=== PATIENT | male | born 1965 | race Caucasian/White ===

== ENCOUNTER 2022-05-25 06:57 | Outpatient (CLI) | payer OTHER, SELFPAY ==
--- NOTE | 2022-05-25 07:15 | CRLHL7_ITS ---
For Patients: As a result of the Century Cures Act, medical imaging exams and procedure reports are released immediately into your electronic medical record. You may view this report before your referring provider. If you have questions, please contact your health care provider. INDICATION: CHRONIC HEPATITIS COMPARISON: CT 02/16/2022 TECHNIQUE: Real time conti scale imaging and color Doppler analysis was performed of the right upper quadrant. FINDINGS: The patient`s liver is of normal size and has diffusely coarsened and heterogeneous echogenicity. There is a normal appearance of the hepatic IVC and proximal abdominal aorta. There is no evidence of ascites. The gallbladder is of normal size and there is no evidence of intraluminal stones or sludge. The gallbladder wall measures 3 mm in thickness. The common bile duct is of normal size and measures 5 mm in diameter at the level of the debbi hepatis. The pancreas appears normal. There is no evidence of a stone or hydronephrosis within the right kidney. The right kidney measures 11.3 cm in length. Incidental note is made of a benign-appearing focus of increased echogenicity within the subcutaneous fat the abdominal wall just beneath the skin measuring 15 x 7 x 12 millimeters. IMPRESSION: Chronic hepatitis. No ascites. Multiple regenerating nodules again noted although better appreciated on the CT. No suspicious intrahepatic mass. Benign abdominal wall subcutaneous lipoma. Dictated by Fausto Flores MD @ 05/25/2022 10:04:50 AM (Electronically Signed)
[2022-05-25 08:19] LABS: Albumin* 3.6 g/dL (3.3-5.0)
[2022-05-25 08:22] LABS: Aspartate Amino Transferase* 41 U/L (12-35); Bilirubin Direct* 0.2 mg/dL (0.0-0.5); Bilirubin Total* 0.6 mg/dL (0.1-1.5); Total Protein* 6.7 g/dL (6.0-8.3)
[2022-05-25 08:23] LABS: Alanine Aminotransferase* 51 U/L (4-50); Alkaline Phosphatase* 98 U/L (40-150)
== END 2022-05-25 06:58 | disposition home or self-care (01) ==
LOC: US 07:00
PROVIDERS: PCP Family Medicine; Visit Provider Family Medicine
DX: K73.9 Chronic hepatitis, unspecified (principal); D17.5 Benign lipomatous neoplasm of intra-abdominal organs
CPT/HCPCS: 36415; 76705; 80076

== ENCOUNTER 2022-10-18 07:06 | Outpatient (CLI) | payer OTHER, SELFPAY ==
--- NOTE | 2022-10-18 | CRLHL7_ITS ---
For Patients: As a result of the Century Cures Act, medical imaging exams and procedure reports are released immediately into your electronic medical record. You may view this report before your referring provider. If you have questions, please contact your health care provider. INDICATION: chronic hepatitis B, mid/left abdominal lump follow-up COMPARISON: 05/25/2022 TECHNIQUE: Real time conti scale imaging and color Doppler analysis was performed of the liver and abdominal wall FINDINGS: The liver parenchyma is diffusely heterogeneous with innumerable regenerating nodules, as before. No ascites. The gallbladder is normal. The gallbladder wall measures less than 2 millimeters. The visualized right kidney appears normal. Similar appearance of subcutaneous lipoma measuring 1.8 x 0.8 x 1.4 cm. IMPRESSION: Chronic liver disease without change compared to the prior study. Stable subcutaneous lipoma. Dictated by Fausto Flores MD @ 10/19/2022 12:57:08 PM (Electronically Signed)
== END 2022-10-18 07:07 | disposition home or self-care (01) ==
PROVIDERS: PCP Family Medicine; Visit Provider Internal Medicine Gastroenterology
DX: B18.1 Chronic viral hepatitis B without delta-agent (principal); K76.9 Liver disease, unspecified
CPT/HCPCS: 76705

== ENCOUNTER 2023-05-05 08:36 | Outpatient (CLI) | payer OTHER, SELFPAY | END 2023-05-05 08:37 | disposition home or self-care (01) | PROVIDERS: PCP Family Medicine; Visit Provider Family Medicine | DX: Z00.00 Encounter for general adult medical examination without abnormal findings (principal); Z13.1 Encounter for screening for diabetes mellitus; Z12.5 Encounter for screening for malignant neoplasm of prostate; Z13.29 Encounter for screening for other suspected endocrine disorder | CPT/HCPCS: 80048; 84153; 84443 ==

== ENCOUNTER 2023-05-12 07:04 | Outpatient (CLI) | payer OTHER, MEDICAID, SELFPAY ==
--- NOTE | 2023-05-12 07:15 | CRLHL7_ITS ---
For Patients: As a result of the Century Cures Act, medical imaging exams and procedure reports are released immediately into your electronic medical record. You may view this report before your referring provider. If you have questions, please contact your health care provider. INDICATION: Chronic hepatitis-B TECHNIQUE: Ultrasound abdomen limited. Sonographic images of the right upper quadrant were obtained using conti-scale and color Doppler images. COMPARISON: None FINDINGS: Liver: Normal in size heterogeneous coarse echotexture. Probable 2.2 centimeter hepatic hemangioma left lobe. No intrahepatic biliary dilatation. Gallbladder: No stones or sludge. Normal wall thickness. No pericholecystic fluid. Common bile duct: 4 mm. Pancreas: Normal. Right kidney: 9.6 cm. Normal echotexture and cortex. No masses, stones, or hydronephrosis. Vasculature: Proximal abdominal aorta and IVC are normal. Miscellaneous: 1.7 centimeter probable lipoma left upper abdominal wall. IMPRESSION: Coarse echogenic liver. 2.2 centimeter probable hepatic hemangioma left lobe. 2.2 centimeter probable lipoma left upper abdominal wall. Dictated by Fausto Gordon MD @ 05/12/2023 4:11:35 PM (Electronically Signed)
[2023-05-12 08:37] LABS: Basophils Absolute Auto 0.02 K/uL (0.00-0.30); Basophils Percent Auto 0.4 % (0.0-3.0); Eosinophils Absolute Auto 0.16 K/uL (0.00-0.50); Eosinophils Percent Auto 2.9 % (0.0-7.0); Hemoglobin* 14.6 gm/dL (13.5-17.5); Lymphocytes Absolute Auto 1.94 K/uL (0.90-2.90); Lymphocytes Percent Auto 35.5 % (20-44); Mean Corpuscular HGB Conc 33 gm/dL (32-36); Mean Corpuscular Hemoglobin 32 pg (26-34); Mean Corpuscular Volume 97 fL (80-100); Neutrophils Absolute Auto 3.02 K/uL (1.7-7.0); Neutrophils Percent Auto 55.2 % (42.0-72.0); Platelet Count* 155 K/uL (140-440); RDW Coefficient of Variation % 12.4 % (11.5-15.5); Red Blood Count 4.56 m/uL (4.30-5.90); White Blood Count* 5.47 K/uL (4.50-11.00)
[2023-05-12 08:49] LABS: Hemoglobin A1C* 5.47 % (0-5.6)
[2023-05-12 08:55] LABS: Chloride* 102 mmol/L (96-114); Potassium* 4.7 mmol/L (3.6-5.1); Sodium* 138 mmol/L (135-149)
[2023-05-12 08:57] LABS: Carbon Dioxide* 30 mmol/L (20-32); Estimated Glomerular Filt Rate 89 ml/min
[2023-05-12 08:58] LABS: Alanine Aminotransferase* 45 U/L (4-50); Alkaline Phosphatase* 66 U/L (40-150); Aspartate Amino Transferase* 36 U/L (12-35); Bilirubin Total* 0.8 mg/dL (0.1-1.5); Blood Urea Nitrogen* 19 mg/dL (7-30); Calcium* 9.1 mg/dL (8.4-10.6); Glucose* 96 mg/dL (60-115); Total Protein* 7.4 g/dL (6.0-8.3)
[2023-05-12 09:17] LABS: Albumin* 4.1 g/dL (3.3-5.0)
[2023-05-12 09:57] LABS: Slide Review Reflex No
[2023-05-13 06:37] LABS: Alpha Fetoprotein Tumor Marker 3 ng/mL (0-9)
== END 2023-05-12 07:05 | disposition home or self-care (01) ==
LOC: US 07:04
PROVIDERS: PCP Family Medicine; Visit Provider Internal Medicine Gastroenterology
DX: B18.1 Chronic viral hepatitis B without delta-agent (principal); D17.1 Benign lipomatous neoplasm of skin and subcutaneous tissue of trunk; D17.5 Benign lipomatous neoplasm of intra-abdominal organs
CPT/HCPCS: 36415; 76705; 80048; 80076; 82105; 83036; 85025; 87350; 87517; T1013

== ENCOUNTER 2023-11-29 10:32 | Outpatient (CLI) | payer OTHER, MEDICAID, SELFPAY ==
[2023-11-29 11:32] LABS: Basophils Absolute Auto 0.02 K/uL (0.00-0.30); Basophils Percent Auto 0.3 % (0.0-3.0); Eosinophils Absolute Auto 0.17 K/uL (0.00-0.50); Eosinophils Percent Auto 2.7 % (0.0-7.0); Hematocrit 47.4 % (37.0-53.0); Hemoglobin* 15.8 gm/dL (13.5-17.5); Immature Granulocytes Abs Auto 0.01 K/uL (0.00-0.30); Immature Granulocytes Pct Auto 0.2 %; Lymphocytes Absolute Auto 1.62 K/uL (0.90-2.90); Lymphocytes Percent Auto 25.7 % (20-44); Mean Corpuscular HGB Conc 33 gm/dL (32-36); Mean Corpuscular Hemoglobin 32 pg (26-34); Mean Corpuscular Volume 96 fL (80-100); Monocytes Percent Auto 4.9 % (0.0-11.0); Neutrophils Absolute Auto 4.18 K/uL (1.7-7.0); Neutrophils Percent Auto 66.2 % (42.0-72.0); Platelet Count* 174 K/uL (140-440); RDW Coefficient of Variation % 11.9 % (11.5-15.5); Red Blood Count 4.96 m/uL (4.30-5.90); White Blood Count* 6.31 K/uL (4.50-11.00)
[2023-11-29 11:58] LABS: Albumin* 4.4 g/dL (3.3-5.0)
[2023-11-29 12:00] LABS: Bilirubin Total* 0.8 mg/dL (0.1-1.5)
[2023-11-29 12:01] LABS: Alanine Aminotransferase* 41 U/L (4-50); Alkaline Phosphatase* 67 U/L (40-150); Aspartate Amino Transferase* 32 U/L (12-35); Total Protein* 7.9 g/dL (6.0-8.3)
[2023-11-29 12:54] LABS: Slide Review Reflex No
--- NOTE | 2023-11-29 15:00 | CRLHL7_ITS ---
For Patients: As a result of the Century Cures Act, medical imaging exams and procedure reports are released immediately into your electronic medical record. You may view this report before your referring provider. If you have questions, please contact your health care provider. INDICATION: Chronic hepatitis B. TECHNIQUE: Conventional two-dimensional grayscale ultrasound of the right upper quadrant. COMPARISON: Right upper quadrant ultrasound of 05/12/2023 FINDINGS: Coarsened hepatic parenchymal echogenicity is again demonstrated. The liver edge appears somewhat nodular, suggesting cirrhosis. An echogenic 2.5 x 2.4 x 2.4 cm posterior left back lobe mass is demonstrated. This was previously measured at 2.2 x 1.9 x 1.6 cm. The gallbladder is normal, with no evidence of stones. No gallbladder wall thickening or pericholecystic fluid is demonstrated. The patient is reportedly not tender over the gallbladder. No biliary ductal dilation is evident. The common bile duct measures 3 mm. The pancreas is within normal limits. The right kidney is unremarkable. The visualized portion of the abdominal aorta and inferior vena cava are negative. IMPRESSION: 1. Suspected cirrhotic liver. 2. 2.5 x 2.4 x 2.4 cm echogenic left hepatic lobe mass, apparently increased from 2.2 x 1.9 x 1.6 cm. Question hepatocellular carcinoma. Further evaluation with MRI recommended. 3. Normal gallbladder and bile ducts. Dictated by Jefry Bass MD @ 11/29/2023 12:27:43 PM (Electronically Signed)
[2023-11-30 12:40] LABS: Alpha Fetoprotein Tumor Marker 3 ng/mL (0-9)
== END 2023-11-29 10:33 | disposition home or self-care (01) ==
PROVIDERS: PCP Family Medicine; Visit Provider Internal Medicine Gastroenterology
DX: B18.1 Chronic viral hepatitis B without delta-agent (principal); R16.0 Hepatomegaly, not elsewhere classified
CPT/HCPCS: 36415; 76705; 80076; 82105; 85025; 87517

== ENCOUNTER 2023-12-01 14:18 | Outpatient (CLI) | payer OTHER, MEDICAID, SELFPAY ==
[2023-12-03 12:34] LABS: Alpha Fetoprotein Tumor Marker 3 ng/mL (0-9)
== END 2023-12-01 14:19 | disposition home or self-care (01) ==
PROVIDERS: PCP Family Medicine; Visit Provider Internal Medicine Gastroenterology
DX: K76.9 Liver disease, unspecified (principal)
CPT/HCPCS: 36415; 82105

== ENCOUNTER 2023-12-12 07:57 | Outpatient (CLI) | payer OTHER, MEDICAID, SELFPAY ==
--- NOTE | 2023-12-12 08:15 | CRLHL7_ITS ---
For Patients: As a result of the Century Cures Act, medical imaging exams and procedure reports are released immediately into your electronic medical record. You may view this report before your referring provider. If you have questions, please contact your health care provider. INDICATION: Chronic hepatitis B; abnormal liver ultrasound; further assessment. COMPARISON: CT abdomen and pelvis February 16, 2022 and ultrasound examination of the right upper quadrant of the abdomen November 19, 2023. TECHNIQUE: Precontrast T1 and T2 weighted imaging; T2 haste imaging; diffusion weighted imaging; in and out of phase imaging; postcontrast imaging including subtraction; 20 cc of Dotarem contrast was injected. FINDINGS: A 3 x 2.8 cm lesion identified in segment 2 of the liver with restriction of diffusion and enhancement postcontrast administration with washout on the delayed imaging indicating a LIRADS 5 lesion. Cirrhotic liver morphology without any evidence of splenomegaly or portal hypertension. Unfortunately ,a true arterial phase imaging is missing. No other focal hepatic or splenic pathology. No pancreatic pathology. Gallbladder is unremarkable. No adrenal pathology. Kidneys are unremarkable. No retroperitoneal lymphadenopathy. IMPRESSION: A 3 x 2.8 cm LIRADS 5 lesion segment 2 of the liver; suggest hepatobiliary consultation for further assessment. Dictated by Jeronimo Chavez MD @ 12/14/2023 2:03:31 PM (Electronically Signed)
== END 2023-12-12 07:58 | disposition home or self-care (01) ==
PROVIDERS: PCP Family Medicine; Visit Provider Internal Medicine Gastroenterology
DX: K76.9 Liver disease, unspecified (principal); B18.1 Chronic viral hepatitis B without delta-agent
CPT/HCPCS: 74183; A9575

== ENCOUNTER 2024-01-16 12:48 | Outpatient (CLI) | payer MEDICAID, SELFPAY ==
[2024-01-16] MEDS: PERFLUTREN LIPID MICROSPHERES 2 ML VIAL IV (14:09)
--- NOTE | 2024-01-16 14:13 | W.PM.STED ---
Stress Test Note Date Date Seen: 01/16/24 Date of test: 01/16/24 Providers Primary care provider: Jhonny Boyd Stress test physician: Milagros Lopez Stress Test Note Stress test ordered: Stress Echo Indication for test: Dyspnea Stress test medicine: Definity Results discussion: Resting EKG: Sinus rhythm, 73 beats per minute. Resting blood pressure: 116/70 Stress test: Patient was exercised on the treadmill following standard Heri protocol. Patient exercised for duration of 9 minutes 32 seconds, equivalent of 11.1 Mets. He achieved a maximum heart rate of 166 beats per minute which was 119% of a calculated target of 139. He had a maximal blood pressure of 188/186 giving him a rate pressure product of 28,764. Test was terminated due to patient being above maximal heart rate, needing to adequately time the definity and giving adequate time for diffusion of the contrast. Patient had no significant symptoms during the stress test, really states he did not have any significant shortness of breath. There was no definitive EKG evidence of ischemia. Patient did exhibit occasional PVCs throughout this stress test. Echo images are pending to couple this for a full formal diagnostic. Impression: Subjectively negative, objectively negative EKG portion of this stress test for ischemia, PVCs noted. Follow up suggested: Patient will await the echo images to be read by Cardiology, will expect a reports or follow-up call from his primary. He was discharged from here in stable condition.
[2024-01-16 14:21] VITALS: BP 130/88; PULSE 97; RESP 18
== END 2024-01-16 14:20 | disposition home or self-care (01) ==
LOC: STRESS 12:49
PROVIDERS: PCP Family Medicine; Visit Provider Family Medicine
DX: R06.09 Other forms of dyspnea (principal)
CPT/HCPCS: 93016; 93325; 93351; T1013; Q9957

== ENCOUNTER 2024-01-29 10:27 | Outpatient (CLI) | payer MEDICAID, SELFPAY | END 2024-01-29 10:28 | disposition home or self-care (01) | PROVIDERS: PCP Family Medicine; Visit Provider Internal Medicine | DX: R16.0 Hepatomegaly, not elsewhere classified (principal) | CPT/HCPCS: 80053; 84100; 85610 ==

== ENCOUNTER 2024-02-26 13:42 | Outpatient (REF) | payer MEDICAID, SELFPAY ==
[2024-02-26 14:51] LABS: Chloride* 104 mmol/L (96-114)
[2024-02-26 14:52] LABS: Potassium* 4.5 mmol/L (3.6-5.1); Sodium* 142 mmol/L (135-149)
[2024-02-26 14:54] LABS: Creatinine* 0.9 mg/dL (0.5-1.5); Estimated Glomerular Filt Rate 100 ml/min
[2024-02-26 14:55] LABS: Anion Gap 7 mEq/L (7-15); Blood Urea Nitrogen* 17 mg/dL (7-30); Carbon Dioxide* 31 mmol/L (20-32); Glucose* 92 mg/dL (60-115); Phosphorus* 3.4 mg/dL (2.5-4.5)
== END 2024-02-26 13:43 | disposition home or self-care (01) ==
LOC: NPINS 13:42
PROVIDERS: PCP Family Medicine; Visit Provider Physician Assistant Surgical
DX: R78.89 Finding of other specified substances, not normally found in blood (principal)
CPT/HCPCS: 80048; 84100

== ENCOUNTER 2024-06-12 07:46 | Outpatient (CLI) | payer BC, SELFPAY ==
--- NOTE | 2024-06-12 08:00 | CRLHL7_ITS ---
For Patients: As a result of the Century Cures Act, medical imaging exams and procedure reports are released immediately into your electronic medical record. You may view this report before your referring provider. If you have questions, please contact your health care provider. INDICATION: Chronic hepatitis B; hepatocellular carcinoma; status post resection segments 2 and 3 of the liver; follow-up. COMPARISON: CT abdomen February 16, 2022; ultrasound examination of the abdomen November 29, 2023; MR of the abdomen December 12, 2023. TECHNIQUE: CT abdomen without intravenous contrast; CT abdomen with intravenous contrast during arterial phase imaging, venous phase imaging and delayed imaging; coronal and sagittal reformats. FINDINGS: No abnormal intrapulmonary nodule densities through the lung bases. No evidence of pleural effusion. Normal size cardiac silhouette. No pericardial effusion. Status post resection segments 2 and 3 of the liver. A tiny subcentimeter cyst at the junction of segments 7 and 8 of the liver without any interval change. No focal hepatic or splenic pathology. No enhancing mass lesions identified within the liver. No evidence of reoccurrence of hepatocellular carcinoma. No pancreatic pathology. Gallbladder is unremarkable. No adrenal pathology. A 5 mm nonobstructing calculus upper pole calyx left kidney. No retroperitoneal lymphadenopathy. No evidence of abdominal ascites. Impression : 1. Status post resection segments 2 and 3 of the liver. 2. No evidence of reoccurrence of hepatocellular carcinoma. 3. Sub cm cyst at the junction of segments 7 and 8 of the liver. 4. 5 mm nonobstructing calculus upper pole calyx left kidney. Please note that all CT scans at this facility use dose modulation, iterative reconstruction, and/or weight-based dosing when appropriate to reduce radiation dose to as low as reasonably achievable. Dictated by Jeronimo Chavez MD @ 06/14/2024 11:49:41 AM (Electronically Signed)
[2024-06-12 09:41] LABS: Basophils Absolute Auto 0.02 K/uL (0.00-0.30); Basophils Percent Auto 0.3 % (0.0-3.0); Eosinophils Percent Auto 1.4 % (0.0-7.0); Hematocrit 45.7 % (37.0-53.0); Hemoglobin* 15.2 gm/dL (13.5-17.5); Immature Granulocytes Abs Auto 0.01 K/uL (0.00-0.30); Immature Granulocytes Pct Auto 0.1 %; Lymphocytes Absolute Auto 2.26 K/uL (0.90-2.90); Lymphocytes Percent Auto 32.4 % (20-44); Mean Corpuscular HGB Conc 33 gm/dL (32-36); Mean Corpuscular Hemoglobin 32 pg (26-34); Mean Corpuscular Volume 95 fL (80-100); Monocytes Percent Auto 5.9 % (0.0-11.0); Neutrophils Absolute Auto 4.18 K/uL (1.7-7.0); Neutrophils Percent Auto 59.9 % (42.0-72.0); Platelet Count* 175 K/uL (140-440); RDW Coefficient of Variation % 12.6 % (11.5-15.5); Red Blood Count 4.82 m/uL (4.30-5.90); White Blood Count* 6.98 K/uL (4.50-11.00)
[2024-06-12 09:45] LABS: Slide Review Reflex No
[2024-06-12 09:52] LABS: Albumin* 4.6 g/dL (3.3-5.0)
[2024-06-12 09:55] LABS: Alkaline Phosphatase* 70 U/L (40-150); Aspartate Amino Transferase* 50 U/L (12-35); Bilirubin Direct* 0.2 mg/dL (0.0-0.5); Bilirubin Total* 0.8 mg/dL (0.1-1.5); Creatinine* 0.9 mg/dL (0.5-1.5); Estimated Glomerular Filt Rate 100 ml/min; Total Protein* 8.2 g/dL (6.0-8.3)
[2024-06-12 09:56] LABS: Alanine Aminotransferase* 33 U/L (4-50)
[2024-06-13 14:56] LABS: Alpha Fetoprotein Tumor Marker 2 ng/mL (0-9)
== END 2024-06-12 07:47 | disposition home or self-care (01) ==
LOC: CT 07:46
PROVIDERS: PCP Family Medicine; Visit Provider Internal Medicine Gastroenterology
DX: B18.1 Chronic viral hepatitis B without delta-agent (principal); C22.0 Liver cell carcinoma; K76.89 Other specified diseases of liver; N20.0 Calculus of kidney
CPT/HCPCS: 36415; 74170; 80076; 82105; 82565; 85025; 87517; T1013; Q9967

== ENCOUNTER 2024-06-18 08:56 | Outpatient (CLI) | payer BC, SELFPAY | END 2024-06-18 08:57 | disposition home or self-care (01) | PROVIDERS: PCP Family Medicine; Visit Provider Family Medicine | DX: Z01.818 Encounter for other preprocedural examination (principal); I25.10 Atherosclerotic heart disease of native coronary artery without angina pectoris; C22.0 Liver cell carcinoma | CPT/HCPCS: 80048; 80061 ==

== ENCOUNTER 2024-06-28 10:58 | Day surgery (SDC) | payer BC, SELFPAY ==
[2024-06-28] VITALS (13 sets, daily range): BP systolic 113–136; BP diastolic 82–110; PULSE 58–67; RESP 15–19; TEMP 36.1–36.6; O2SAT 94–99; BMI 29.3
[2024-06-28] MEDS: OXYMETAZOLINE 0.05% NASAL SPRAY 2 SPRAY NOSTRIL-B (11:25)
[2024-06-28] MEDS: LACTATED RINGERS 1000 ML 1,000 ML 100 ML IV (11:30)
[2024-06-28] MEDS: SODIUM CHLORIDE 0.9 % (FLUSH) 10 ML SYRINGE IVF (11:30)
[2024-06-28] MEDS: BUPIVACAINE 0.5 %/EPI 1:200K 30 ML INJECTION (12:39)
[2024-06-28] MEDS: COCAINE HCL 4 % 4 ML SOLUTION NOSTRIL-B (12:39)
[2024-06-28] MEDS: AYR SALINE NASAL GEL 1 APPLIC NOSTRIL-B (12:39)
[2024-06-28] MEDS: MUPIROCIN 1 GM PACKET 1 APPLIC TOPICAL (12:39)
--- NOTE | 2024-06-28 13:00 | P.ENTPROC_ITS ---
Procedure Note Date of procedure: 06/28/24 Procedure: Preop diagnosis nasal obstruction, deviated septum, bilateral inferior turbinate hypertrophy Postoperative diagnosis same Procedure nasal septoplasty, submucous partial resection inferior turbinates bilateral Under general trach anesthesia patient was prepped draped usual fashion and the nose decongested and injected. A right hemitransfixion incision was made left anterior posterior tunnels were created a vertical incision was made through the cartilage and a right posterior tunnel created. A right anterior tunnel was also created which medialized the anterior septum. The posterior deflected portions of septal bone were removed by cutting above and below the turbinate scissors and removing with the [place] forceps. A large piece was trimmed and returned to intraseptal space. The hemitransfixion was closed with 2 4-0 chromic sutures and silastic stents secured with 3-0 nylon. A stab incision was made in the anterior of the right inferior turbinate a tunnel created with a Torin dissector. The turbinate was outfractured and a conservative anterior submucous resection performed with Willy forceps. The Coblation was used to cauterize and then to cauterize intramurally along the inferior 10%. This was repeated on the left side in identical fashion. Merocel packing was placed above the stents on each side. The patient procedure well was taken recovery in satisfactory condition. Blood loss was less than 10 mL. Surgeon: Loc Kincaid MD
--- NOTE | 2024-06-28 13:18 | W.ANESCHARGE ---
Anesthesia Charges Start Date/Time Anesthesia Start Date: 06/28/24 Anesthesia Start Time: 12:23 Stop Date/Time Anesthesia Stop Date: 06/28/24 Anesthesia Stop Time: 13:17
--- NOTE | 2024-06-28 13:21 | W.ANESCHARGE ---
Anesthesia Charges Start Date/Time Anesthesia Start Date: 06/28/24 Anesthesia Start Time: 12:23 Stop Date/Time Anesthesia Stop Date: 06/28/24 Anesthesia Stop Time: 13:17
== END 2024-06-28 15:08 | disposition home or self-care (01) ==
LOC: OR 11:02
PROVIDERS: PCP Family Medicine; Visit Provider Otolaryngology
PROC: (CPT 30520; principal; 2024-06-28 12:30)
DX: J34.2 Deviated nasal septum (principal); J34.3 Hypertrophy of nasal turbinates; J34.89 Other specified disorders of nose and nasal sinuses
CPT/HCPCS: 30520; 30140; 00160; T1013; A9270; J1100; J2250; J2405; J2704; J2710; J3010; J3490; J7120

== ENCOUNTER 2024-09-16 07:45 | Outpatient (CLI) | payer BC, SELFPAY ==
--- NOTE | 2024-09-16 08:00 | CRLHL7_ITS ---
For Patients: As a result of the Century Cures Act, medical imaging exams and procedure reports are released immediately into your electronic medical record. You may view this report before your referring provider. If you have questions, please contact your health care provider. INDICATION: Hepatocellular carcinoma status post left lateral segmentectomy (segments 2/3) performed 01/23/2024. Follow-up. COMPARISON: MRI 12/12/2023 TECHNIQUE: CT of the abdomen prior to and following intravenous administration of 89 cc of Isovue 370 intravenous contrast. Postcontrast imaging performed in the early arterial, portal venous and delayed phases. Please note that all CT scans at this facility use dose modulation, iterative reconstruction, and/or weight-based dosing when appropriate to reduce radiation dose to as low as reasonably achievable. FINDINGS: ABDOMEN Liver: Left lateral segmentectomy (segments 2/3). Stable 5 mm segment 8 cyst (9; 16). No intrahepatic biliary ductal dilatation. Patent portal veins. Patent hepatic veins. Gallbladder: Normal size. No pericholecystic inflammatory changes. Extrahepatic Biliary Tree: Normal common duct caliber. Pancreas: No focal lesion. Normal main duct caliber. No peripancreatic inflammatory changes. Spleen: No suspicious focal lesion. Adrenal Glands: Symmetrical adrenal glands. No focal lesion of significance. Kidneys: Normal bilateral renal attenuation. No suspicious focal lesion. Nonobstructing 6 mm left nephrolith (4; 41). No dilatation of the intrarenal collecting systems. No ureteral stone. Nondilated ureters. Gastrointestinal tract: Normal caliber, attenuation and wall thickness of the gastrointestinal tract. No inflammatory changes. Normal small bowel mesentery. Normal appendix. Vascular: Abdominal aorta and its major proximal branches including the celiac, superior mesenteric, inferior mesenteric, renal, and bilateral common iliac arteries are patent. Inferior vena cava, portal and superior mesenteric veins are patent. Peritoneal Cavity/Retroperitoneum: No ascites. No adenopathy. SKELETON AND BODY WALL No acute or significant incidental findings. LOWER THORAX Partially included lower thoracic wall, lungs, pleural spaces and mediastinum are otherwise without significant incidental findings. IMPRESSION: No significant interval findings. Left lateral hepatic segmentectomy. Incidental stable benign segment 8 subcentimeter hepatic cyst. Nonobstructing subcentimeter left nephrolith. Please note that all CT scans at this facility use dose modulation, iterative reconstruction, and/or weight-based dosing when appropriate to reduce radiation dose to as low as reasonably achievable. Dictated by Robert Fine MD @ 09/16/2024 12:13:02 PM (Electronically Signed)
[2024-09-16 09:05] LABS: Basophils Absolute Auto 0.02 K/uL (0.00-0.30); Basophils Percent Auto 0.3 % (0.0-3.0); Eosinophils Absolute Auto 0.14 K/uL (0.00-0.50); Eosinophils Percent Auto 2.1 % (0.0-7.0); Hematocrit 45.9 % (37.0-53.0); Hemoglobin* 15.1 gm/dL (13.5-17.5); Immature Granulocytes Abs Auto 0.01 K/uL (0.00-0.30); Immature Granulocytes Pct Auto 0.2 %; Lymphocytes Percent Auto 30.3 % (20-44); Mean Corpuscular HGB Conc 33 gm/dL (32-36); Mean Corpuscular Hemoglobin 32 pg (26-34); Mean Corpuscular Volume 96 fL (80-100); Monocytes Percent Auto 5.7 % (0.0-11.0); Neutrophils Absolute Auto 4.06 K/uL (1.7-7.0); Neutrophils Percent Auto 61.4 % (42.0-72.0); Platelet Count* 159 K/uL (140-440); RDW Coefficient of Variation % 12.2 % (11.5-15.5); Red Blood Count 4.77 m/uL (4.30-5.90); White Blood Count* 6.61 K/uL (4.50-11.00)
[2024-09-16 09:06] LABS: Slide Review Reflex No
[2024-09-16 09:20] LABS: Albumin* 4.3 g/dL (3.3-5.0)
[2024-09-16 09:23] LABS: Aspartate Amino Transferase* 33 U/L (12-35); Bilirubin Direct* 0.1 mg/dL (0.0-0.5); Bilirubin Total* 0.4 mg/dL (0.1-1.5); Creatinine* 0.8 mg/dL (0.5-1.5); Estimated Glomerular Filt Rate 103 ml/min; Total Protein* 7.5 g/dL (6.0-8.3)
[2024-09-16 09:24] LABS: Alanine Aminotransferase* 46 U/L (4-50); Alkaline Phosphatase* 68 U/L (40-150)
[2024-09-17 16:59] LABS: Alpha Fetoprotein Tumor Marker 2 ng/mL (0-9)
== END 2024-09-16 07:46 | disposition home or self-care (01) ==
LOC: CT 07:53
PROVIDERS: PCP Family Medicine; Visit Provider Internal Medicine Gastroenterology
DX: C22.0 Liver cell carcinoma (principal)
CPT/HCPCS: 36415; 74170; 80076; 82105; 82565; 85025; 87517; T1013; Q9967

== ENCOUNTER 2024-10-28 21:52 | Emergency (ER) | payer BC, SELFPAY ==
[2024-10-28 22:27] VITALS: BP 111/69; PULSE 82; RESP 18; TEMP 36.4
--- NOTE | 2024-10-28 22:47 | ED_ITS ---
HPI - General Adult General Stated complaint: R wrist work injury Time Seen by Provider: 10/28/24 22:45 History of Present Illness HPI narrative: LW BS Related Data Home Medications ?Medication ?Instructions ?Recorded ?Confirmed entecavir 0.5 mg tablet 0.5 mg PO QDAY 01/29/24 07/02/24 Gut Support PO 06/18/24 07/02/24 probiotic PO 06/18/24 07/02/24 Previous Rx's ?Medication ?Instructions ?Recorded rosuvastatin 5 mg tablet 5 mg PO QDAY #30 tabs 06/18/24 cephalexin 250 mg capsule 250 mg PO TID #18 caps 06/28/24 oxycodone 5 mg capsule 5 mg PO Q4-6H PRN pain #30 caps 06/28/24 Allergies Allergy/AdvReac Type Severity Reaction Status Date / Time turmeric Allergy Unknown Itching Verified 09/16/24 09:06 [facility] PFS Surgical History History of surgery of liver ?Z98.890 - Other specified postprocedural states (ICD-10) Status post subtotal parathyroidectomy ?E89.2 - Postprocedural hypoparathyroidism (ICD-10) Social History What is your current living situation?: I presently have a place to live Problems where you live: no known problems In the past 12 months, utilities in danger of being shut off: no In the past 12 mos, have been you worried that your food would run out before you had money to buy more?: never true In the past 12 mos, the food you bought just didn't last and you didn't have money to buy more?: never true Smoking Status: Never smoker Do you use any of these nicotine containing products: None Second hand tobacco smoke exposure: No How often do you have a drink containing alcohol: never How often do you have six or more drinks on one occasion: Never AUDIT-C Alcohol total score: 0 Non-prescribed substance use: denies use Caffeine: No How often does anyone, including family, friends and others, physically hurt you : How often does anyone, including family, friends and others, insult or talk down to you: How often does anyone, including family, friends and others, threaten you with harm: How often does anyone, including family, friends and others, scream or curse at you: Exam Const: Vital Signs, click to edit/add: Vital Signs - 24 hr 10/28/24 22:27 Temperature 97.6 F Pulse Rate [Pulse Oximeter] 82 Respiratory Rate 18 Blood Pressure [Ri ght Upper Arm] 111/69 Oxygen Delivery Me thod Room Air Course Vital Signs Vital signs: Initial Vital Signs Temperature 97.6 F 10/28/24 22:27 Temperature Source Temporal Artery Scan 10/28/24 22:27 Pulse Rate 82 10/28/24 22:27 Respiratory Rate 18 10/28/24 22:27 Blood Pressure 111/69 10/28/24 22:27 Blood Pressure Mean 83 10/28/24 22:27 Oxygen Delivery Method Room Air 10/28/24 22:27 Vital Signs Temperature 97.6 F 10/28/24 22:27 Pulse Rate 82 10/28/24 22:27 Respiratory Rate 18 10/28/24 22:27 Blood Pressure 111/69 10/28/24 22:27 Oxygen Delivery Method Room Air 10/28/24 22:27 Temperature 97.6 F 10/28/24 22:27 Pulse Rate 82 10/28/24 22:27 Respiratory Rate 18 10/28/24 22:27 Blood Pressure 111/69 10/28/24 22:27 Oxygen Delivery Method Room Air 10/28/24 22:27 Discharge Plan Discharge Patient Disposition: Left Without Being Seen
--- NOTE | 2024-10-28 23:07 | PC.NURSE ---
pt provided ice pack and directed back to triage related to increase ED pts. All other cares explained. Pt with SO and ambulate back to triage with stable gait.
== END 2024-10-29 00:16 | disposition left against medical advice (07) ==
LOC: ED 10-29 00:17
PROVIDERS: Emergency Provider Emergency Medicine; PCP Family Medicine
DX: Z53.21 Procedure and treatment not carried out due to patient leaving prior to being seen by health care provider (principal)
CPT/HCPCS: 99281

== ENCOUNTER 2024-12-11 10:12 | Outpatient (CLI) | payer BC, SELFPAY ==
[2024-12-11 10:44] LABS: Basophils Absolute Auto 0.02 K/uL (0.00-0.30); Basophils Percent Auto 0.3 % (0.0-3.0); Eosinophils Absolute Auto 0.09 K/uL (0.00-0.50); Eosinophils Percent Auto 1.3 % (0.0-7.0); Hematocrit 44.9 % (37.0-53.0); Hemoglobin* 14.9 gm/dL (13.5-17.5); Lymphocytes Absolute Auto 2.07 K/uL (0.90-2.90); Mean Corpuscular HGB Conc 33 gm/dL (32-36); Mean Corpuscular Hemoglobin 32 pg (26-34); Mean Corpuscular Volume 96 fL (80-100); Monocytes Percent Auto 5.7 % (0.0-11.0); Neutrophils Absolute Auto 4.33 K/uL (1.7-7.0); Neutrophils Percent Auto 62.7 % (42.0-72.0); Platelet Count* 163 K/uL (140-440); RDW Coefficient of Variation % 12.3 % (11.5-15.5); Red Blood Count 4.69 m/uL (4.30-5.90)
[2024-12-11 10:49] LABS: Slide Review Reflex No
[2024-12-11 10:59] LABS: Albumin* 4.3 g/dL (3.3-5.0)
[2024-12-11 11:02] LABS: Alkaline Phosphatase* 65 U/L (40-150); Aspartate Amino Transferase* 34 U/L (12-35); Bilirubin Direct* 0.1 mg/dL (0.0-0.5); Bilirubin Total* 0.8 mg/dL (0.1-1.5); Estimated Glomerular Filt Rate 88 ml/min; Total Protein* 7.6 g/dL (6.0-8.3)
[2024-12-11 11:03] LABS: Alanine Aminotransferase* 44 U/L (4-50)
[2024-12-12 17:24] LABS: Alpha Fetoprotein Tumor Marker 2 ng/mL (0-9)
== END 2024-12-11 10:13 | disposition home or self-care (01) ==
PROVIDERS: PCP Family Medicine; Visit Provider Internal Medicine Gastroenterology
DX: C22.0 Liver cell carcinoma (principal); B18.1 Chronic viral hepatitis B without delta-agent
CPT/HCPCS: 36415; 80076; 82105; 82565; 85025; 87517

== ENCOUNTER 2024-12-11 10:19 | Outpatient (CLI) | payer BC, SELFPAY | END 2024-12-11 10:20 | disposition home or self-care (01) | LOC: CT 10:19 | PROVIDERS: PCP Family Medicine; Visit Provider Internal Medicine Gastroenterology | DX: C22.0 Liver cell carcinoma (principal); B18.1 Chronic viral hepatitis B without delta-agent | CPT/HCPCS: 74170; Q9967 ==

== ENCOUNTER 2025-03-04 08:11 | Outpatient (CLI) | payer OTHER, SELFPAY | END 2025-03-04 08:12 | disposition home or self-care (01) | PROVIDERS: PCP Family Medicine; Visit Provider Family Medicine | DX: I25.10 Atherosclerotic heart disease of native coronary artery without angina pectoris (principal); Z12.5 Encounter for screening for malignant neoplasm of prostate | CPT/HCPCS: 80061; G0103 ==

== ENCOUNTER 2025-04-04 12:29 | Outpatient (CLI) | payer OTHER, SELFPAY ==
--- NOTE | 2025-04-04 13:00 | CRLHL7_ITS ---
For Patients: As a result of the Century Cures Act, medical imaging exams and procedure reports are released immediately into your electronic medical record. You may view this report before your referring provider. If you have questions, please contact your health care provider. INDICATION: Hepatocellular carcinoma TECHNIQUE: CT abdomen acquired without and with 95 mL Isovue 370 IV contrast. Liver protocol with precontrast, arterial, venous, and 5 minute delayed images. COMPARISON: 12/11/2024, 09/16/2024 CTs FINDINGS: Lower chest: Unremarkable. Liver: Partial left hepatectomy. No abnormal arterial enhancement. Stable low-density 5 mm lesion in segment 8. Gallbladder and bile ducts: Unremarkable. No stones or inflammation. No biliary dilatation. Pancreas: Unremarkable. No mass or inflammation. Spleen: Unremarkable. Normal in size. No masses. Adrenal glands: Unremarkable. No nodules. Kidneys: Unremarkable. No masses, stones, or hydronephrosis. GI tract: Unremarkable. Normal in caliber. No sign of mass or inflammation. Vasculature: Hepatic artery, remaining hepatic and portal veins are patent. Mesenteric arteries are patent. Lymph nodes: No lymphadenopathy. Omentum/Peritoneum/Abdominal Wall: Unremarkable. No sign of mass or infiltration. No free air or significant free fluid. Bones: Unremarkable for age. IMPRESSION: Partial left hepatectomy. No suspicious mass. No change. Please note that all CT scans at this facility use dose modulation, iterative reconstruction, and/or weight-based dosing when appropriate to reduce radiation dose to as low as reasonably achievable. Dictated by Dane Simmons MD @ 04/08/2025 10:28:37 AM (Electronically Signed)
== END 2025-04-04 12:30 | disposition home or self-care (01) ==
LOC: CT 12:31
PROVIDERS: PCP Family Medicine; Visit Provider Internal Medicine Gastroenterology
DX: C22.0 Liver cell carcinoma (principal)
CPT/HCPCS: 74170; T1013; Q9967

== ENCOUNTER 2025-08-04 11:40 | Outpatient (CLI) | payer BC, SELFPAY | END 2025-08-04 11:41 | disposition home or self-care (01) | PROVIDERS: PCP Family Medicine; Visit Provider Family Medicine | DX: K74.69 Other cirrhosis of liver (principal); N62 Hypertrophy of breast; Z13.29 Encounter for screening for other suspected endocrine disorder | CPT/HCPCS: 80048; 84146; 84443 ==

== ENCOUNTER 2025-09-18 07:41 | Outpatient (CLI) | payer BC, SELFPAY ==
--- NOTE | 2025-09-18 08:00 | CRLHL7_ITS ---
For Patients: As a result of the Century Cures Act, medical imaging exams and procedure reports are released immediately into your electronic medical record. You may view this report before your referring provider. If you have questions, please contact your health care provider. Indication: HCC/CHRONIC HEP B. 6 MONTH FOLLOW UP Technique: CT Abdomen 3 PHASE LIVER 92CC ISOVUE 370 intravenous contrast Please note that all CT scans at this facility use dose modulation, iterative reconstruction, and/or weight-based dosing when appropriate to reduce radiation dose to as low as reasonably achievable. Comparison: 04/04/2025, 12/11/2024, 12/12/2023 Findings: Status post left hepatectomy. Stable sub cm cyst segment 8. No enhancing lesion. No stigmata of cirrhosis. No new lesion. Gallbladder, spleen, pancreas, adrenal glands and kidneys normal. Lung bases clear. No bowel obstruction. No adenopathy. Normal osseous structures. Impression: No suspicious findings. Please note that all CT scans at this facility use dose modulation, iterative reconstruction, and/or weight-based dosing when appropriate to reduce radiation dose to as low as reasonably achievable. Dictated by Fausto Flores MD @ 09/18/2025 8:46:54 AM (Electronically Signed)
== END 2025-09-18 07:42 | disposition home or self-care (01) ==
LOC: CT 07:43
PROVIDERS: PCP Family Medicine; Visit Provider Internal Medicine Gastroenterology
DX: B18.1 Chronic viral hepatitis B without delta-agent (principal); C22.0 Liver cell carcinoma
CPT/HCPCS: 74170; T1013; Q9967

== ENCOUNTER 2025-09-18 07:47 | Outpatient (CLI) | payer BC, SELFPAY ==
[2025-09-18 08:51] LABS: Albumin* 4.3 g/dL (3.3-5.0)
[2025-09-18 08:53] LABS: Creatinine* 0.9 mg/dL (0.5-1.5); Estimated Glomerular Filt Rate 99 ml/min; Total Protein* 7.9 g/dL (6.0-8.3)
[2025-09-18 08:54] LABS: Alanine Aminotransferase* 36 U/L (4-50); Alkaline Phosphatase* 64 U/L (40-150); Aspartate Amino Transferase* 36 U/L (12-35); Bilirubin Direct* 0.1 mg/dL (0.0-0.5); Bilirubin Total* 1.0 mg/dL (0.1-1.5)
[2025-09-18 08:58] LABS: INR 1.06 (0.91-1.10); Prothrombin Time 14.6 Seconds
[2025-09-18 09:51] LABS: Hepatitis B Surface Antibody* Negative (Negative); Hepatitis B Surface Antigen* Positive (Negative)
[2025-09-19 19:28] LABS: Hepatitis Be Virus Antibody Positive (Negative)
[2025-09-20 07:35] LABS: Hepa B Virus Surf Ag Conf Positive (Non Confirmed)
== END 2025-09-18 07:48 | disposition home or self-care (01) ==
PROVIDERS: PCP Family Medicine; Visit Provider Internal Medicine Gastroenterology
DX: C22.0 Liver cell carcinoma (principal); B18.1 Chronic viral hepatitis B without delta-agent
CPT/HCPCS: 36415; 80076; 82105; 82565; 85610; 86706; 86707; 87340; 87341

== ENCOUNTER 2025-09-29 07:47 | Outpatient (CLI) | payer BC, SELFPAY ==
--- NOTE | 2025-09-29 07:45 | CRLHL7_ITS ---
For Patients: As a result of the Century Cures Act, medical imaging exams and procedure reports are released immediately into your electronic medical record. You may view this report before your referring provider. If you have questions, please contact your health care provider. DIGITAL DIAGNOSTIC BILATERAL MAMMOGRAM USING TOMOSYNTHESIS AND COMPUTER-AIDED DETECTION CLINICAL HISTORY: RIGHT breast lump. COMPARISON: None. TECHNIQUE: Digital BILATERAL mammogram in four projections with computer-aided detection. Tomosynthesis was used in this interpretation. BREAST COMPOSITION: The breasts are heterogeneously dense, which may obscure small masses. FINDINGS: 3D CC/MLO BILATERAL mammogram images submitted. Moderate diffuse BILATERAL fibroglandular tissue noted. No architectural distortion or suspicious mass. No adenopathy or suspicious calcifications. IMPRESSION: Moderate diffuse BILATERAL gynecomastia, RIGHT greater than LEFT. RECOMMENDATIONS: Clinical follow-up. BI-RADS Category 2: Benign Dictated by Fausto Flores MD @ 09/29/2025 9:35:49 AM jj/Dictated by: Fausto Flores MD @ 09/29/2025 9:35:00 AM (Electronically Signed)
== END 2025-09-29 07:48 | disposition home or self-care (01) ==
LOC: MAMMO 07:48
PROVIDERS: PCP Family Medicine; Visit Provider Family Medicine
DX: N63.10 Unspecified lump in the right breast, unspecified quadrant (principal); R92.333 Mammographic heterogeneous density, bilateral breasts; N62 Hypertrophy of breast
CPT/HCPCS: 77066; G0279